=== PATIENT | male | born 1965 | race American Indian/Alaskan Native ===

== ENCOUNTER 2016-10-14 03:43 | Emergency (ER) | payer MEDICAID ==
[2016-10-14 05:21] LABS: Anion Gap 19 mmol/L; Blood Urea Nitrogen 8 mg/dL (9-20); Calcium 8.2 mg/dL (8.4-10.2); Carbon Dioxide 23 mmol/L (22-30); Chloride 98.9 mmol/L (98-107); Glucose 112 mg/dL (75-100); Potassium 4.3 mmol/L (3.6-5.0); Sodium 137 mmol/L (137-145)
[2016-10-14 05:45] LABS: Basophils % (Auto) 0.4 % (0.0-1.8); Eosinophils % (Auto) 3.9 % (0.0-4.3); Hematocrit 45.8 % (35.5-45.6); Mean Corpuscular HGB Conc 33 % (32-34); Mean Corpuscular Hemoglobin 29 pg (28-32); Mean Corpuscular Volume 90 fl (84-94); Platelet Count 210 K/mm3 (140-440); Red Blood Count 5.08 M/mm3 (3.65-5.03); White Blood Count 8.7 K/mm3 (4.5-11.0)
[2016-10-14 06:48] VITALS: BP 130/68
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
[2016-10-14] MEDS ORDERED: MAGNESIUM SULFATE 2GM/50ML 2 GM/50 ML BAG IV ONE (07:03)
[2016-10-14] MEDS ORDERED: DUONEB 0.5 MG-3 MG/3 ML SOLN IH ONE (07:03)
--- NOTE | 2016-10-14 12:10 | XRay Report ---
CHEST TWO VIEWS: 10/14/16 03:43:00 CLINICAL: Shortness of breath. COMPARISON: None FINDINGS: Normal heart and pulmonary vasculature. The lungs are mildly hyperexpanded and hyperlucent. No airspace disease or pleural effusion. The bones and soft tissues are normal. IMPRESSION: COPD.No CHF or pneumonia.
== END 2016-10-14 08:25 | disposition home or self-care (01) ==
LOC: ED 03:43
DX: L21.9 Seborrheic dermatitis, unspecified (principal); L85.3 Xerosis cutis; F20.9 Schizophrenia, unspecified; J45.901 Unspecified asthma with (acute) exacerbation; F17.200 Nicotine dependence, unspecified, uncomplicated; Z79.899 Other long term (current) drug therapy
CPT/HCPCS: 36415; 71020; 80048; 84484; 85025; 93005; 93010; 94640; 96365; 99284; J3475